=== PATIENT | female | born 1950 | race Caucasian/White ===

== ENCOUNTER → 2016-10-03 | Outpatient (CLI) | payer OTHER | LOC: FIMAGING 15:02 | PROVIDERS: ATTEND Neurological Surgery ==

== ENCOUNTER 2016-11-25 05:43 | Observation (INO) | payer OTHER ==
[2016-10-29 14:36] LABS: % IMMATURE GRANULYOCYTES 0.3 % (0.0-1.1); ABSOLUTE IMMATURE GRANULOCYTES 0.02 10^3/uL (0.00-0.10); ADD DIFF? NO; ADD MORPH? NO; ADD SCAN? NO; ATYPICAL LYMPHOCYTE FLAG 30 (0-99); FRAGMENT RBC FLAG 0 (0-99); HEMATOCRIT 36.8 % (38.0-47.0); HEMOGLOBIN 12.7 g/dL (12.6-16.3); LEFT SHIFT FLG 0 (0-99); LIPEMIA HEMOLYSIS FLAG 90 (0-99); MEAN CELL HEMOGLOBIN 31.5 pg (27.9-34.1); MEAN CELL HEMOGLOBIN CONCENTR. 34.5 g/dL (32.4-36.7); MEAN CELL VOLUME 91.3 fL (81.5-99.8); MEAN PLATELET VOLUME 9.6 fL (8.7-11.7); PLATELET CLUMPS FLAG 10 (0-99); PLATELET COUNT 202 10^3/uL (150-400); RED BLOOD CELL COUNT 4.03 10^6/uL (4.18-5.33); RED CELL DISTRIBUTION WIDTH 11.9 % (11.5-15.2)
[2016-11-25] MEDS ORDERED: ACETAMINOPHEN 500 MG TAB PO ONE (05:53)
[2016-11-25] MEDS ORDERED: ceFAZolin 2 GM/DEXTROSE 100 ML IV ONE (05:53)
[2016-11-25] MEDS ORDERED: GABAPENTIN 300 MG CAP PO ONE (05:53)
[2016-11-25] MEDS ORDERED: LR 1,000 ML IV ONE (05:55)
[2016-11-25] MEDS ORDERED: LIDOCAINE 1% 2 ML INJ ONE (06:35)
[2016-11-25] MEDS ORDERED: CHLORHEXIDINE GLUC HIBICLENS 118 ML BTL TP ONE (06:41)
[2016-11-25] MEDS ORDERED: AVITENE POWDER 1 GM JAR TP ONE (06:42)
[2016-11-25] MEDS ORDERED: BUPIVACAINE 0.25% 30 ML SDV ONE (06:42)
[2016-11-25] MEDS ORDERED: BACITRACIN 50,000 UNITS/10 ML SYR IRR ONE (06:42)
[2016-11-25] MEDS ORDERED: THROMBIN (BOVINE) 20,000 UNIT VIAL TP ONE (06:42)
[2016-11-25] MEDS ORDERED: MIDAZOLAM 2 MG/2 ML VIAL IVP ONE (07:07)
--- NOTE | 2016-11-25 07:07 | PDANEPAE ---
ANE History of Present Illness Lumbar decompression ANE Past Medical History - Cardiovascular History Hx Hypertension: No Hx Arrhythmias: No Hx Chest Pain: Yes Hx Coronary Artery / Peripheral Vascular Disease: No Hx CHF / Valvular Disease: No Hx Palpitations: No - Pulmonary History Hx COPD: No Hx Asthma/Reactive Airway Disease: No Hx Recent Upper Respiratory Infection: No Hx Oxygen in Use at Home: No Hx Sleep Apnea: No Sleep Apnea Screening Result - Last Documented: Negative - Neurologic History Hx Cerebrovascular Accident: No Hx Seizures: No Hx Dementia: No Neurologic History Comment: tingling to ankle or foot currently - Endocrine History Hx Diabetes: No - Renal History Hx Renal Disorders: No - Liver History Hx Hepatic Disorders: No - Neurological & Psychiatric Hx Hx Neurological and Psychiatric Disorders: Yes Neurological / Psychiatric History Comment: hx of bouts of depression - Cancer History Hx Cancer: No - Congenital Disorder History Hx Congenital Disorders: No - GI History Hx Gastrointestinal Disorders: Yes Gastrointestinal History Comment: occ constipation - Other Health History Other Health History: none - Chronic Pain History Chronic Pain: Yes (back pain) - Surgical History Prior Surgeries: bunion surgeries on both feet. cataract surgeries on both eyes ANE Review of Systems Review of Systems: - Exercise capacity METS (RN): 4 METS ANE Patient History - Allergies Allergies/Adverse Reactions: Sulfa (Sulfonamide Antibiotics) Allergy (Mild, Verified 10/28/16 11:37) Hives scopolamine Allergy (Verified 10/28/16 11:37) Vomiting - Home Medications Home Medications: Calcium Carbonate [Oyster Shell Calcium 500 mg (*)] 500 mg PO DAILY 05/18/15 [ Last Taken 11/18/16] Estradiol [VAGIFEM] 10 mcg VG SUTH@05/18/15 [Last Taken Unknown] Estradiol [Vivelle-Dot 0.025MG (*)] 0.025 mg TD SuTh@0800 05/18/15 [Last Taken 11/22/16] Multivitamins [Multivitamin (*)] 1 each PO DAILY 05/18/15 [Last Taken 11/18/16] [place]-3 Fatty Acids [Fish Oil 1000 mg (*)] 1,000 mg PO DAILY 05/18/15 [Last Taken 11/18/16] Progesterone, Micronized [Progesterone] 100 mg PO HS 05/18/15 [Last Taken ] traZODone [traZODONE 100MG (*)] 100 mg PO HS 05/18/15 [Last Taken 11/24/16] Diclofenac Sodium [Voltaren 75 MG (*)] 75 mg PO BID 10/28/16 [Last Taken ] Vitamin B Complex [B Complex] 1 each PO DAILY 10/28/16 [Last Taken 11/18/16] - NPO status NPO Status: no food or drink >8 hours NPO Since - Liquids (Date): 11/24/16 NPO Since - Liquids (Time): 22:30 NPO Since - Solids (Date): 11/24/16 NPO Since - Solids (Time): 22:30 - Anes Hx Anes Hx: post operative nausea - Smoking Hx Smoking Status: Never smoked Marijuana use: No - Alcohol Use Alcohol Use: Occasionally - Family Anes Hx Family Anes Hx: none Family Hx Anesthesia Complications: none ANE Labs/Vital Signs - Labs Result Diagrams: 10/29/16 14:30 - Vital Signs Blood Pressure: 108/65 Heart Rate: 68 Respiratory Rate: 12 O2 Sat (%): 97 Height: 172.72 cm Weight: 59.874 kg ANE Physical Exam - Airway Mallampati Score: Class 2 Mouth exam: normal dental/mouth exam - Pulmonary Pulmonary: no respiratory distress - Cardiovascular Cardiovascular: regular rate and rhythym, no murmur, rub, or gallop - ASA Status ASA Status: II ANE Anesthesia Plan Anesthesia Plan: general endotracheal anesthesia
[2016-11-25] MEDS ORDERED: fentaNYL 100 MCG/2 ML INJ ONE ×4 (07:12→10:17)
--- NOTE | 2016-11-25 07:12 | PDHPUP ---
History & Physical Update H&P update statement: This history and physical update is based on an assessment of the patient which was completed after admission or registration (within 24 hours), but prior to the surgery/procedure. H&P update: H&P reviewed & patient examined, no change in patient's condition since H&P completed (Consents signed and site marked. All questions answered.)
[2016-11-25] MEDS ORDERED: PROPOFOL/EMULSION 500 MG/50 ML BOTTLE IV ONE (07:13)
[2016-11-25] MEDS ORDERED: PROPOFOL 200 MG/20 ML VIAL ONE (07:13)
[2016-11-25] MEDS ORDERED: GLYCOPYRROLATE 0.2 MG/1 ML VIAL ONE (07:14)
[2016-11-25] MEDS ORDERED: LIDOCAINE 2% 5 ML SDV ONE (07:14)
[2016-11-25] MEDS ORDERED: ROCURONIUM 50 MG/5 ML VIAL ONE (07:14)
[2016-11-25] MEDS ORDERED: DEXAMETHASONE 4 MG/ML VIAL ONE (07:14)
[2016-11-25] MEDS ORDERED: ONDANSETRON 4 MG/2 ML VIAL ONE (09:10)
[2016-11-25] MEDS ORDERED: LACTULOSE 20 GM/30 ML UDCUP PO PRN (09:36)
[2016-11-25] MEDS ORDERED: MAGNESIUM HYDROXIDE 30 ML UDCUP PO PRN (09:36)
[2016-11-25] MEDS ORDERED: BISACODYL 10 MG SUPP PR PRN (09:36)
[2016-11-25] MEDS ORDERED: diphenhydrAMINE 25 MG CAP PO PRN (09:36)
[2016-11-25] MEDS ORDERED: POLYETHYLENE GLYCOL 3350 17 GM PKT PO PRN (09:36)
--- NOTE | 2016-11-25 09:43 | POSTOPPROG ---
Post Op Note Date of Operation: 11/25/16 Surgeon: Crystal Lisa Medical Supervisor: Cleemnt Lisa PA-C Anesthesiologist: Michele Anesthesia: GET(General Endotracheal) Pre-op Diagnosis: lumbar stenosis, radiculopathy Post-op Diagnosis: same Indication: leg pain, nerve compression Procedure: L3-5 laminectomy with right sided foraminotomies Findings: Please see dictation Inf/Abcess present in the surg proc area at time of surgery?: No Depth: Organ Space EBL: 50-100 Complications: none Drains: Mehdi Jimenez Specimen(s): none PA Addendum - Addendum .: S: Pt awake in PACU, c/o of some mild lower back pain O: Sleepy, awakens easily NAD VSS MAEx4 Motor 5/5 BUE/BLE +LT Incision cdi JPx1 A: 66 yo F s/p L3-5 laminectomy with right sided foraminotomies P: Pain management Spine precautions PT/OT TEDs, SCDs, lovenox POD#1 Call NS with any issues D/w Dr Acevedo
[2016-11-25] MEDS ORDERED: LR 500 ML IV PRN (09:44)
[2016-11-25] MEDS ORDERED: HYDROmorphONE/DILAUDID 1 MG/ML INJ IVP PRN (09:44)
[2016-11-25] MEDS ORDERED: fentaNYL 100 MCG/2 ML INJ IVP PRN (09:44)
[2016-11-25] MEDS ORDERED: NALOXONE HCL 0.4 MG/ML INJ IVP PRN (09:44)
[2016-11-25] MEDS ORDERED: NS W/ 20 KCl/L 1,000 ML IV SCH (09:45)
[2016-11-25] MEDS: ONDANSETRON 4 MG/2 ML VIAL IVP PRN ×2 (12:13→17:58)
--- NOTE | 2016-11-25 12:13 | GOP ---
[f rep st] OPERATIVE REPORT DATE OF OPERATION: 11/25/2016 SURGEON: Jordan Acevedo MD GREENHOUSE ASSISTANT: Crystal Lisa PA-C. ANESTHESIA: General. PREOPERATIVE DIAGNOSIS: 1. L3-L4, L4-L5 spinal stenosis with lateral recess and foraminal stenosis, right side. 2. Lower extremity radiculopathy. 3. Treatment refractory to nonoperative intervention. POSTOPERATIVE DIAGNOSIS: 1. L3-L4, L4-L5 spinal stenosis with lateral recess and foraminal stenosis, right side. 2. Lower extremity radiculopathy. 3. Treatment refractory to nonoperative intervention. PROCEDURE PERFORMED: 1. L3-L4, L4-L5 decompressive laminectomy with bilateral medial facetectomies and bilateral foraminotomies at L3-L4, L4-L5. 2. Use of intraoperative fluoroscopy, less than 1 hour physician time. 3. Use of neuromonitoring. FINDINGS: per imaging ESTIMATED BLOOD LOSS: 60 mL. INDICATIONS: The patient is a woman who unfortunately suffers from lower extremity claudication, right greater than left. She had evidence of severe spinal stenosis at L3-L4, L4-L5 with severe foraminal stenosis on the right L3- L4, L4-L5. After failing nonoperative interventions, after discussion of risks , benefits, and treatment alternatives, we decided to proceed forth with surgery as described above. DESCRIPTION OF PROCEDURE: The patient was brought to the operating theater and underwent general endotracheal anesthesia without complications. She had Venodynes, KISHA hose, and the appropriate lines placed by Anesthesia. She was flipped prone onto the Lee frame, and all bony prominences inspected and padded. The lower lumbar region was prepped and draped in the usual sterile surgical fashion. A time-out was completed per protocol. The patient received antibiotics within 1 hour of incision. Using lateral fluoroscopy and a spinal needle, we picked our entry point at the L3 through L5 levels. This was marked in the midline. The incision infiltrated with Marcaine with epinephrine. The incision was taken down with the scalpel blade and then using monopolar, the incision was taken down the midline through the lumbodorsal fascia, and subperiosteal dissection carried to the medial facet joints of L3-L4 and L4-L5. Deep retractors were placed to maintain our exposure, and we confirmed our level using lateral fluoroscopy. Using a combination of the bur tip on the drill bit, Kerrison punches, and Leksell rongeur, we completed a decompressive laminectomy at L3-L4 and L4-L5. We completed medial facetectomies and lateral recess decompression at L3-L4 and L4-L5 with the Kerrison punches. We then completed a bilateral foraminotomy at L3-L4 and L4-L5 with the banana Kerrison until everything felt well decompressed on manual palpation. We irrigated the wound copiously with bacitracin irrigation and obtained hemostasis with the bipolar. The wound was then closed in multiple layers using Vicryl sutures for the deep layers and Dermabond for the skin. The patient's wounds were dressed sterilely. She was flipped supine onto the transport cart. She was awakened, extubated, taken to recovery room in stable condition. There were no complications and no noted changes on neuromonitoring throughout the procedure. COMPLICATIONS: None. /[id number]/MODL MTDD
[2016-11-25] MEDS: oxyCODONE IR 5 MG TAB PO PRN ×3 (13:06→20:37)
[2016-11-25] MEDS: ACETAMINOPHEN 500 MG TAB PO SCH ×2 (15:57→20:37)
[2016-11-25] MEDS: POLYETHYLENE GLYCOL 3350 17 GM PKT PO SCH ×2 (15:58→20:36)
[2016-11-25] MEDS: ceFAZolin 2 GM/DEXTROSE 100 ML IV SCH ×2 (15:58→21:30)
[2016-11-25] MEDS: SENNOSIDES/DOCUSATE SODIUM TAB PO SCH (20:36)
[2016-11-25] MEDS: PROGESTERONE,MICR 100 MG CAP PO SCH (20:36)
[2016-11-25] MEDS: FAMOTIDINE 20 MG TAB PO SCH (20:38)
[2016-11-25] MEDS: traZODone 100 MG TAB PO SCH (20:38)
[2016-11-25] MEDS: METHOCARBAMOL 750 MG TAB PO PRN (20:38)
[2016-11-26] MEDS: oxyCODONE IR 5 MG TAB PO PRN ×4 (05:55→21:10)
[2016-11-26] MEDS: ACETAMINOPHEN 500 MG TAB PO SCH ×3 (05:55→21:11)
[2016-11-26] MEDS: METHOCARBAMOL 750 MG TAB PO PRN ×3 (05:56→21:10)
--- NOTE | 2016-11-26 07:31 | NEUSURGPN ---
Date of Surgery: 11/25/16 Post Op Day: 1 Assessment/Plan: 66 yr old s/p Right L3-5 foraminotomies Plan: -Pain controlled when taking orals as scheduled, had flare up last night possibly due to sleeping and not taking pain medication -Ok to dc this am if pain remains controlled with PO medications-scripts are on patient chart -DC DAKOTA drain -PT/OT -TEDs, SCDs Call neurosurgery with any issues Subjective: Patient resting comfortably, pain controlled with recent oral dose, pre op right leg pain improved Objective: Sleepy, awakens easily NAD VSS MAEx4 Motor 5/5 BUE/BLE +LT Incision cdi JPx1 Neuro Check Frequency: per routine Urinary Catheter in Place: No - Physician Discussed Patient with DrLolly: Kristina Neurosurgery Physical Exam - Vitals, I&O, Labs I and O 11/25/16 11/26/16 11/27/16 05:59 05:59 05:59 Intake Total 1560 Output Total 148 Balance 1412 Weight 59.874 kg Intake: Oral (ml) 310 IV Intake (ml) 1250 Output: Estimated Blood Loss (ml) 60 DAKOTA Drain Output (ml) 88 Back Mehdi Jimenez 88 Other: Intake Quantity Yes Sufficient Number of Voids Bedside Commode 1 Toilet 1 Vital Signs Temp Pulse Resp BP Pulse Ox 36.9 C 65 16 90/48 L 95 11/26/16 04:00 11/26/16 04:00 11/26/16 04:00 11/26/16 04:00 11/26/16 04:00 Laboratory Results 10/29/16 14:30 ICD10 Worksheet Patient Problems: Problems Problem Status Onset Chest pain Acute
[2016-11-26] MEDS: FAMOTIDINE 20 MG TAB PO SCH ×2 (09:36→21:11)
[2016-11-26] MEDS: MULTIVITAMINS 1 EACH TAB PO SCH (09:36)
[2016-11-26] MEDS: VITAMIN B COMPLEX 1 EA CAP/TAB PO SCH (09:36)
[2016-11-26] MEDS: CALCIUM CARBONATE 500 MG TAB PO SCH (09:36)
[2016-11-26] MEDS: SENNOSIDES/DOCUSATE SODIUM TAB PO SCH ×2 (09:36→21:12)
[2016-11-26] MEDS: ENOXAPARIN 40 MG/0.4 ML SYR SC SCH (09:37)
[2016-11-26] MEDS: POLYETHYLENE GLYCOL 3350 17 GM PKT PO SCH ×3 (09:38→21:13)
[2016-11-26] MEDS: HYDROmorphONE/DILAUDID 1 MG/ML INJ IVP PRN ×2 (11:00→16:03)
--- NOTE | 2016-11-26 12:29 | POSTANESTH ---
Post Anesthetic Evaluation Cardiovascular Status: Normal, Stable Respiratory Status: Normal, Stable Level of Consciousness/Mental Status: Can Participate in Eval Pain Control: Adequate, Prn Tx Ordered Nausea/Vomiting Control: Adequate, Prn Tx Ordered Complications Possibly Related to Anesthesia: None Noted
[2016-11-26] MEDS: ONDANSETRON 4 MG/2 ML VIAL IVP PRN (13:26)
[2016-11-26] MEDS ORDERED: DIAZEPAM 5 MG TAB PO PRN (13:30)
--- NOTE | 2016-11-26 16:40 | ASMTCMCOM ---
CM Note CM Note Notes: PT rec home/outpatient. Anticipate pt will d/c when medically stable and pain under control. CM available for changes/needs. Date Signed: 11/26/2016 04:39 PM Electronically Signed By:DWIGHT Kruse
[2016-11-26] MEDS: ONDANSETRON DISINTEGRATING 4 MG TAB PO PRN ×2 (17:13→19:37)
[2016-11-26] MEDS: PROGESTERONE,MICR 100 MG CAP PO SCH (21:10)
[2016-11-26] MEDS: traZODone 100 MG TAB PO SCH (21:11)
[2016-11-27] MEDS: oxyCODONE IR 5 MG TAB PO PRN ×2 (03:57→09:19)
[2016-11-27] MEDS: METHOCARBAMOL 750 MG TAB PO PRN ×2 (03:57→09:17)
[2016-11-27] MEDS: ONDANSETRON DISINTEGRATING 4 MG TAB PO PRN (05:58)
[2016-11-27] MEDS: ACETAMINOPHEN 500 MG TAB PO SCH ×3 (05:58→20:36)
[2016-11-27] MEDS ORDERED: ESTRADIOL VIVELLE 0.025 MG PATCH TD SCH (08:00)
[2016-11-27] MEDS ORDERED: Estradiol [Vagifem] 10 MCG VG SCH (09:00)
--- NOTE | 2016-11-27 09:11 | NEUSURGPN ---
Assessment/Plan: 66 yr old s/p L3-5 laminectomy with right sided foraminotomies Plan: -Pain controlled on oral meds, had a much better night last night. -Ok to dc today if pain remains controlled with PO medications-scripts are on patient chart -PT/OT -TEDs, SCDs, lovenox -Dressing change Call neurosurgery with any issues Subjective: Pt resting in bed, states she slept much better overnight Objective: AAOx3 NAD VSS MAEx4 Motor 5/5 BLE Incision cdi +LT Urinary Catheter in Place: No - Physician Discussed Patient with : Kirstina Neurosurgery Physical Exam - Vitals, I&O, Labs I and O 11/26/16 11/27/16 11/28/16 05:59 05:59 05:59 Intake Total 1560 1400 Output Total 148 45 Balance 1412 1355 Weight 59.874 kg Intake: Oral (ml) 310 1400 IV Intake (ml) 1250 Output: Estimated Blood Loss (ml) 60 DAKOTA Drain Output (ml) 88 45 Back Mehdi Jimenez 88 45 Other: Intake Quantity Yes Sufficient Number of Voids Bedside Commode 1 Toilet 1 1 Vital Signs Temp Pulse Resp BP Pulse Ox 36.9 C 81 12 120/60 94 11/27/16 07:27 11/27/16 07:27 11/27/16 07:27 11/27/16 07:27 11/27/16 07:27 Laboratory Results 10/29/16 14:30 ICD10 Worksheet Patient Problems: Problems Problem Status Onset Chest pain Acute
[2016-11-27] MEDS: ENOXAPARIN 40 MG/0.4 ML SYR SC SCH (09:16)
[2016-11-27] MEDS: FAMOTIDINE 20 MG TAB PO SCH ×2 (09:17→20:32)
[2016-11-27] MEDS: SENNOSIDES/DOCUSATE SODIUM TAB PO SCH ×2 (09:18→20:31)
[2016-11-27] MEDS: ONDANSETRON 4 MG/2 ML VIAL IVP PRN (09:19)
[2016-11-27] MEDS: MULTIVITAMINS 1 EACH TAB PO SCH (09:33)
[2016-11-27] MEDS: CALCIUM CARBONATE 500 MG TAB PO SCH (09:33)
[2016-11-27] MEDS: POLYETHYLENE GLYCOL 3350 17 GM PKT PO SCH ×2 (09:34→14:20)
[2016-11-27] MEDS: VITAMIN B COMPLEX 1 EA CAP/TAB PO SCH (09:34)
[2016-11-27] MEDS ORDERED: PROMETHAZINE HCL 25 MG TAB PO PRN (10:12)
[2016-11-27] MEDS ORDERED: PROMETHAZINE HCL 25 MG/ML INJ IVP PRN (10:22)
[2016-11-27] MEDS ORDERED: traMADol 50 MG TAB PO PRN (12:50)
[2016-11-27] MEDS ORDERED: SCOPOLAMINE HYDROBROMIDE 1 MG/3 DAYS PATCH TD SCH (13:00)
[2016-11-27 15:33] VITALS: RESP 16
[2016-11-27] MEDS: HYDROCODONE/APAP 5/325 TAB PO PRN ×3 (16:22→20:32)
[2016-11-27] MEDS: PROGESTERONE,MICR 100 MG CAP PO SCH (20:32)
[2016-11-27] MEDS: traZODone 100 MG TAB PO SCH (20:32)
[2016-11-28] MEDS: POLYETHYLENE GLYCOL 3350 17 GM PKT PO SCH ×3 (00:13→15:18)
[2016-11-28] MEDS: ACETAMINOPHEN 500 MG TAB PO SCH ×2 (05:01→13:10)
[2016-11-28] MEDS: METHOCARBAMOL 750 MG TAB PO PRN ×2 (08:35→13:10)
[2016-11-28] MEDS: ENOXAPARIN 40 MG/0.4 ML SYR SC SCH (08:35)
[2016-11-28] MEDS: SENNOSIDES/DOCUSATE SODIUM TAB PO SCH ×2 (08:36→15:17)
[2016-11-28] MEDS: FAMOTIDINE 20 MG TAB PO SCH (08:36)
[2016-11-28] MEDS: ONDANSETRON DISINTEGRATING 4 MG TAB PO PRN ×2 (08:40→13:10)
[2016-11-28] MEDS: HYDROCODONE/APAP 5/325 TAB PO PRN ×2 (08:53→13:10)
[2016-11-28] MEDS: CALCIUM CARBONATE 500 MG TAB PO SCH (10:03)
[2016-11-28] MEDS: VITAMIN B COMPLEX 1 EA CAP/TAB PO SCH (10:04)
[2016-11-28] MEDS: MULTIVITAMINS 1 EACH TAB PO SCH (10:04)
[2016-11-28 15:25] VITALS: BP 98/55; PULSE 76; TEMP 98.6; O2SAT 89
--- NOTE | 2016-11-29 11:42 | ASDISCHSUM ---
Discharge Information Plan Status:Home with No Needs Medically Cleared to Leave: Discharge Date:11/28/2016 04:30 PM CM D/C Disposition:Home, Routine, Self-Care ADT D/C Disposition:Home, Routine, Self-Care Projected Discharge Date:11/28/2016 04:30 PM Transportation at D/C: Discharge Delay Reason: Follow-Up Date:11/28/2016 04:30 PM Discharge Slot: Final Diagnosis: Placement Information Patient Contact Information Contact Name:LISA Relationship: Address:[address] City:[place] Alternate Phone: State/Zip Code:[place] [address] Email: Financial Information Financial Class:Medicare Advantage Plans Primary Plan Desc:[employer] MED[employer] ADVANTAGE PLAN Primary Plan Number:[id number] Secondary Plan Desc: Secondary Plan Number: Assessment Information [facility] CM Progress Note CM Note CM Note Notes: PT rec home/outpatient. Anticipate pt will d/c when medically stable and pain under control. CM available for changes/needs. Date Signed: 11/26/2016 04:39 PM Electronically Signed By:DWIGHT Kruse Intervention Information Intervention Type:*NGUYEN-Signed Date of Service:11/25/2016 12:14 PM Patient Type:Observation Staff Member:Cookie Reyes Hours: Discipline: Severity: Comment:
[2016-11-30] MEDS ORDERED: PATCH REMOVAL 1 EA PATCH TD SCH (12:49)
== END 2016-11-28 16:30 | disposition home or self-care (01) ==
LOC: F3N 05:43
PROVIDERS: ADMIT Neurological Surgery; ATTEND Neurological Surgery
DX: M48.061 Spinal stenosis, lumbar region without neurogenic claudication (principal); M54.16 Radiculopathy, lumbar region
CPT/HCPCS: 63030; 63035; 76001; 97116; 97161; 97165; 97535; G0378; G8978; G8979; G8987; G8988; G8989; J0171; J0690; J1100; J1170; J1650; J2250; J2405; J2550; J2704; J3010

== ENCOUNTER → 2017-01-05 | Outpatient (CLI) | payer OTHER | LOC: FIMAGING 12:07 | PROVIDERS: ATTEND Obstetrics & Gynecology Gynecology | DX: Z12.31 Encounter for screening mammogram for malignant neoplasm of breast (principal) | CPT/HCPCS: G0202 ==

== ENCOUNTER → 2018-01-12 | Outpatient (CLI) | payer OTHER | LOC: FIMAGING 10:27 | PROVIDERS: ATTEND Family Medicine | DX: Z12.31 Encounter for screening mammogram for malignant neoplasm of breast (principal) ==

== ENCOUNTER → 2018-04-02 | Outpatient (CLI) | payer OTHER | LOC: FIMAGING 09:05 | PROVIDERS: ATTEND Family Medicine | DX: M81.0 Age-related osteoporosis without current pathological fracture (principal) ==